=== PATIENT | female | born 1995 ===

== ENCOUNTER → 2024-12-30 | Outpatient (CLI) | payer OTHER | LOC: LAB SHORT 15:12 → LAB 15:12 | DX: O09.90 Supervision of high risk pregnancy, unspecified, unspecified trimester (principal) | CPT/HCPCS: 87081; 87150 ==

== ENCOUNTER 2025-01-14 09:21 | Inpatient (IN) | payer OTHER ==
[~2025-01-14] VITALS: Ht 157.5 cm; Wt 74.5 kg
[2025-01-14] VITALS (22 sets, daily range): BP systolic 90–149; BP diastolic 49–90
[2025-01-14] MEDS ORDERED: Lactated Ringer's 1,000 ML IV ONE (09:46)
[2025-01-14] MEDS ORDERED: Lactated Ringer's 1,000 ML IV SCH (09:50)
[2025-01-14] MEDS ORDERED: CeFAZolin Sodium 2,000 MG in NS 100 ML IV SCH (09:50)
[2025-01-14 10:12] LABS: BASOPHILS ABSOLUTE AUTO 0.02 K/mm3 (0.00-0.23); BASOPHILS PERCENT AUTO 0 % (0-2); EOSINOPHILS ABSOLUTE AUTO 0.07 K/mm3 (0.00-0.68); EOSINOPHILS PERCENT AUTO 1 % (0-6); Hemoglobin 10.5 g/dL (11.5-16.0); IMMATURE GRAN ABSOLUTE AUTO 0.11 K/mm3 (0.00-0.10); IMMATURE GRAN PERCENT AUTO 1 % (0-1); LYMPHOCYTES ABSOLUTE AUTO 1.59 K/mm3 (0.84-5.20); LYMPHOCYTES PERCENT AUTO 18 % (21-46); MONOCYTES ABSOLUTE AUTO 0.43 K/mm3 (0.16-1.47); MONOCYTES PERCENT AUTO 5 % (4-13); Mean Corpuscular HGB 27.1 pg (26.0-34.0); Mean Corpuscular HGB Conc 32.8 g/dL (31.5-36.5); Mean Corpuscular Volume 83 fL (80-100); Mean Platelet Volume 11.8 fL (9.1-12.4); NEUTROPHILS ABSOLUTE AUTO 6.64 K/mm3 (1.96-9.15); NEUTROPHILS PERCENT AUTO 75 % (41-73); Platelet Count 266 K/mm3 (150-400); RDW Coefficient Variation 14.9 % (11.7-14.2); RDW Standard Deviation 44.7 fL (35.1-46.3); Red Blood Cell Count 3.87 M/mm3 (3.80-5.20); White Blood Cell Count 8.86 K/mm3 (4.00-11.30)
[2025-01-14] MEDS ORDERED: Azithromycin 500 MG in NS 250 ML IV SCH (10:30)
[2025-01-14] MEDS ORDERED: FentaNYL Citrate 50 MCG/ML 2 ML Injection ONE (10:30)
[2025-01-14] MEDS ORDERED: Famotidine 10 MG/ML 2ML Vial IV ONE (10:30)
[2025-01-14] MEDS ORDERED: Oxytocin 10 Unit / ML Vial ONE (10:31)
[2025-01-14] MEDS ORDERED: Phenylephrine HCl 100 MCG/ML-NS 10MLSYR (1MG/10ML) ONE (10:49)
[2025-01-14] MEDS ORDERED: Ondansetron HCl 2 MG / ML 2ML Vial ONE (11:27)
[2025-01-14] MEDS ORDERED: Ketorolac Tromethamine 30mg Vial ONE (11:28)
--- NOTE | 2025-01-14 11:28 | NUR ---
01/14/25 [id number] Shirley Roth VIABLE BABY BOY BORN AT 1059.
[2025-01-14] MEDS ORDERED: DiphenhydrAMINE HCL 25 MG Cap PO PRN (14:45)
[2025-01-14] MEDS ORDERED: Carboprost Tromethamine 250 MCG/ML 1ML Amp IM PRN (14:45)
[2025-01-14] MEDS ORDERED: Simethicone 80 MG Chew PO PRN (14:45)
[2025-01-14] MEDS ORDERED: Promethazine HCl 25 MG Tab PO PRN (14:45)
[2025-01-14] MEDS ORDERED: Acetaminophen 500 MG Tab PO PRN (14:45)
[2025-01-14] MEDS ORDERED: Methylergonovine Maleate 0.2 MG Tab PO PRN (14:50)
[2025-01-14] MEDS ORDERED: Magnesium Hydroxide Conc 10 ML UDC PO PRN (14:50)
[2025-01-14] MEDS ORDERED: Metoclopramide HCl 10 MG Tab PO PRN (14:50)
[2025-01-14] MEDS ORDERED: Lanolin Cream TOP PRN (14:50)
[2025-01-14] MEDS ORDERED: Misoprostol 200 MCG Tab PR PRN (14:50)
[2025-01-14] MEDS ORDERED: OxyCODONE HCL 5 MG TAB PO PRN ×2 (14:55)
[2025-01-14] MEDS ORDERED: OXYTOCIN/RINGER'S LACTATE 500 ML IV SCH (14:55)
[2025-01-14] MEDS ORDERED: Ondansetron HCl 2 MG / ML 2ML Vial IV PRN (14:55)
[2025-01-14] MEDS ORDERED: Ketorolac Tromethamine 30mg Vial IV SCH (15:00)
--- NOTE | 2025-01-14 16:15 | NUR ---
ambulated to chair. kayode care down, DISCUSSED TAKING OUT KAREEM SHE STATES IN TO MUCH PAIN TO DO IT MAYBE TONIGHT WHEN PAIN IN BETTER CONTROL
[2025-01-14] MEDS ORDERED: Docusate Sodium 100 MG Cap PO SCH (21:00)
[2025-01-15 00:40] VITALS: BP 105/72
[2025-01-15 05:03] VITALS: BP 103/64
[2025-01-15 06:10] LABS: BASOPHILS ABSOLUTE AUTO 0.02 K/mm3 (0.00-0.23); BASOPHILS PERCENT AUTO 0 % (0-2); EOSINOPHILS ABSOLUTE AUTO 0.08 K/mm3 (0.00-0.68); EOSINOPHILS PERCENT AUTO 1 % (0-6); Hematocrit 25.9 % (33.0-51.0); Hemoglobin 8.5 g/dL (11.5-16.0); IMMATURE GRAN ABSOLUTE AUTO 0.05 K/mm3 (0.00-0.10); IMMATURE GRAN PERCENT AUTO 1 % (0-1); LYMPHOCYTES ABSOLUTE AUTO 1.54 K/mm3 (0.84-5.20); LYMPHOCYTES PERCENT AUTO 18 % (21-46); MONOCYTES ABSOLUTE AUTO 0.58 K/mm3 (0.16-1.47); MONOCYTES PERCENT AUTO 7 % (4-13); Mean Corpuscular HGB 27.6 pg (26.0-34.0); Mean Corpuscular HGB Conc 32.8 g/dL (31.5-36.5); Mean Corpuscular Volume 84 fL (80-100); Mean Platelet Volume 11.4 fL (9.1-12.4); NEUTROPHILS PERCENT AUTO 74 % (41-73); Platelet Count 190 K/mm3 (150-400); RDW Coefficient Variation 15.1 % (11.7-14.2); RDW Standard Deviation 46.3 fL (35.1-46.3); Red Blood Cell Count 3.08 M/mm3 (3.80-5.20); White Blood Cell Count 8.77 K/mm3 (4.00-11.30)
[2025-01-15 07:44] VITALS: BP 103/75
[2025-01-15] MEDS ORDERED: Prenatal Vit/FE Fumarate/FA 1 Tab PO SCH (09:00)
[2025-01-15 11:40] VITALS: BP 111/70
[2025-01-15] MEDS ORDERED: Ibuprofen 400 MG Tab PO SCH (12:00)
[2025-01-15 14:23] VITALS: BP 129/75
--- NOTE | 2025-01-15 14:24 | NUR ---
D/C HOME WITH BABY
== END 2025-01-15 14:15 | disposition home or self-care (01) | DRG 788 ==
LOC: OBS 09:21 → BC 09:24 → OBS 09:53 → BC 09:54
PROVIDERS: Obstetrics & Gynecology; ADMIT Advanced Practice Midwife
PROC: 4A1HXCZ Monitoring of Products of Conception, Cardiac Rate, External Approach (ICD-10-PCS; 2025-01-14)
PROC: 10D00Z1 Extraction of Products of Conception, Low, Open Approach (ICD-10-PCS; principal; 2025-01-14 10:00)
DX: O34.211 Maternal care for low transverse scar from previous cesarean delivery (principal); Z3A.38 38 weeks gestation of pregnancy; Z37.0 Single live birth; Z87.891 Personal history of nicotine dependence; O99.02 Anemia complicating childbirth
CPT/HCPCS: 36415; 85025; 86850; 86900; 86901; 86923; A9270; J0456; J0690; J1885; J2371; J2405; J2590; J3010; J7050; J7120